=== PATIENT | male | born 1990 | race African-American/Black ===

== ENCOUNTER 2021-01-30 17:00 | Emergency (ER) | payer OTHER ==
[~2021-01-30] VITALS: Ht 177.8 cm; Wt 131.5 kg
== END 2021-01-30 17:59 | disposition home or self-care (01) ==
LOC: ER 17:00
DX: S91.342A Puncture wound with foreign body, left foot, initial encounter (principal); W45.0XXA Nail entering through skin, initial encounter; Y93.89 Activity, other specified; Y92.69 Other specified industrial and construction area as the place of occurrence of the external cause; Y99.8 Other external cause status

== ENCOUNTER 2022-09-07 08:25 | Emergency (ER) | payer OTHER ==
[~2022-09-07] VITALS: Ht 180.3 cm; Wt 111.6 kg
[2022-09-07] MEDS ORDERED: DICLOFENAC POTA50 MG PO (10:19)
[2022-09-07] MEDS ORDERED: CYCLOBENZAPRINE10 MG PO (10:19)
== END 2022-09-07 10:26 | disposition home or self-care (01) ==
LOC: ER 08:25
DX: S33.5XXA Sprain of ligaments of lumbar spine, initial encounter (principal); X58.XXXA Exposure to other specified factors, initial encounter; Y93.9 Activity, unspecified; Y92.9 Unspecified place or not applicable; Y99.9 Unspecified external cause status

== ENCOUNTER 2022-11-17 14:11 | Emergency (ER) | payer OTHER ==
[~2022-11-17] VITALS: Ht 180.3 cm; Wt 111.1 kg
[~2022-11-17 14:11] MED LIST: CYCLOBENZAPRINE10 MG PO; DICLOFENAC POTA50 MG PO
[2022-11-17] MEDS ORDERED: DOLOGEN CAPLET1 EACH PO (15:51)
[2022-11-17] MEDS ORDERED: ZYRTEC10 MG PO (15:51)
[2022-11-17] MEDS ORDERED: TUSNEL LIQUID178 ML PO (15:51)
== END 2022-11-17 15:59 | disposition home or self-care (01) ==
LOC: ER 14:11
DX: J10.1 Influenza due to other identified influenza virus with other respiratory manifestations (principal); Z20.822 Contact with and (suspected) exposure to COVID-19

== ENCOUNTER 2023-02-04 12:38 | Emergency (ER) | payer OTHER ==
[~2023-02-04] VITALS: Ht 172.7 cm; Wt 83.9 kg
[~2023-02-04 12:38] MED LIST changes: +DOLOGEN CAPLET1 EACH PO; +TUSNEL LIQUID178 ML PO; +ZYRTEC10 MG PO
== END 2023-02-04 15:25 | disposition home or self-care (01) ==
LOC: ER
DX: M62.838 Other muscle spasm (principal)

== ENCOUNTER 2024-01-02 18:04 | Emergency (ER) | payer OTHER ==
[~2024-01-02] VITALS: Ht 180.3 cm; Wt 122.5 kg
[2024-01-02] MEDS ORDERED: ACETAMINOPHEN 500 MG GEL..CAP PO ONE ×3 (20:00→21:23)
[2024-01-02 20:45] LABS: HEMATOCRIT 42.2 % (39.0-48.0); HEMOGLOBIN 14.3 g/dL (13-16.00); MEAN CELL VOLUME 77.6 fL (80.0-100.00); MEAN CORPUSCULAR HEMOGLOBIN 26.3 pg (27.00-32.0); MEAN CORPUSCULAR HGB CONC 33.9 g/dl (32.0-36.0); RED BLOOD COUNT 5.44 M/uL (4.00-6.00); RED CELL DISTRIBUTION WIDTH 14.6 % (11.5-14.5)
[2024-01-02 20:47] LABS: PLATELET COUNT 120 K/uL (150-450)
[2024-01-02 21:12] LABS: PH,URINE 6.5 (5.0-8.0); URINE APPEARANCE Clear; URINE BILIRRUBIN Negative (NEGATIVE); URINE BLOOD Negative; URINE COLOR Yellow; URINE GLUCOSE Negative (NEGATIVE); URINE KETONE Negative (NEGATIVE); URINE LEUKOCYTE Negative; URINE NITRATE Negative; URINE PROTEIN 30 (NEGATIVE)
[2024-01-02 21:15] LABS: URINE BACTERIA 23.9 uL (0.0-1933); URINE EPITHELIAL CELLS 4.6 uL (0.0-38.8); URINE RBC 8.5 uL (0.0-20.8); URINE WBC 4.9 uL (0.0-23.2)
== END 2024-01-02 21:46 | disposition home or self-care (01) ==
LOC: ER 18:05
PROVIDERS: Nurse Practitioner Family
DX: A90 Dengue fever [classical dengue] (principal); R53.81 Other malaise; Z20.822 Contact with and (suspected) exposure to COVID-19

== ENCOUNTER 2024-01-19 18:47 | Emergency (ER) | payer OTHER ==
[~2024-01-19] VITALS: Ht 180.3 cm; Wt 129.7 kg
[2024-01-19] MEDS ORDERED: AMOX1TAB5 PO (18:58)
[2024-01-19] MEDS ORDERED: KETOROLAC TROMETHAMINE 60 MG VIAL IM ONE ×2 (19:26→19:30)
[2024-01-19 19:43] LABS: HEMATOCRIT 41.6 % (39.0-48.0); HEMOGLOBIN 13.9 g/dL (13-16.00); MEAN CELL VOLUME 77.4 fL (80.0-100.00); MEAN CORPUSCULAR HEMOGLOBIN 25.8 pg (27.00-32.0); MEAN CORPUSCULAR HGB CONC 33.3 g/dl (32.0-36.0); PLATELET COUNT 288 K/uL (150-450); RED BLOOD COUNT 5.37 M/uL (4.00-6.00); RED CELL DISTRIBUTION WIDTH 14.1 % (11.5-14.5)
[2024-01-19 19:46] LABS: ERYTHROCYTE SEDIMENTATION RATE 12 mm/hr
[2024-01-19] MEDS ORDERED: [UNRECOGNIZED DRUG - OTHER] IJ ONE (21:00)
[2024-01-19] MEDS ORDERED: KETO10TA2 PO (21:01)
[2024-01-19] MEDS ORDERED: PEPCID AC20 MG PO (21:01)
[2024-01-19] MEDS ORDERED: AUGMENTIN XR 11 EACH PO (21:01)
== END 2024-01-19 21:39 | disposition home or self-care (01) ==
LOC: ER 18:49
PROVIDERS: General Practice
DX: J32.9 Chronic sinusitis, unspecified (principal); R68.84 Jaw pain
CPT/HCPCS: 36415; 70220; 96372; 99283; J1885; J3490